=== PATIENT | female | born 1960 | race American Indian/Alaskan Native ===

== ENCOUNTER 2017-05-21 09:54 | Outpatient (CLI) | payer BC ==
--- NOTE | 2017-05-21 11:10 | Ultrasound Report ---
Ultrasound of the right upper quadrant. History: Elevated liver function studies. Findings: The abdominal aorta is normal. The gallbladder has been removed. In the right lobe of the liver, there is an ovoid shaped hyperechoic lesion measuring 1.6 x 1.1 cm. No additional focal hepatic abnormalities are seen. There is generalized increased echogenicity of the pancreatic parenchyma with no evidence of focal mass or inflammation. There is no evidence of pseudocyst. The common bile duct is normal in caliber. The right kidney is unremarkable. Impression: 1. Hyperechoic lesion in the right kidney probably represents a hemangioma. A followup ultrasound is recommended in 6 months to ensure stability unless further workup is indicated on a clinical basis. 2. Hyperechoic appearance of the entire pancreas consistent with fatty replacement/involution.
== END 2017-05-21 09:55 | disposition home or self-care (01) ==
LOC: SPVWC 09:54
PROVIDERS: ATTEND Internal Medicine Rheumatology
DX: N28.89 Other specified disorders of kidney and ureter (principal); K76.89 Other specified diseases of liver; R94.5 Abnormal results of liver function studies; Z90.49 Acquired absence of other specified parts of digestive tract
CPT/HCPCS: 76705